=== PATIENT | female | born 1945 | race Two or more races ===

== ENCOUNTER 2021-05-05 08:00 | Outpatient (CLI) | payer OTHER | END 2021-05-05 08:30 | disposition home or self-care (01) | LOC: PPH VACUNA 08:00 | PROVIDERS: ATTEND Emergency Medicine Pediatric Emergency Medicine | DX: Z23 Encounter for immunization (principal) ==

== ENCOUNTER 2021-05-12 12:06 | Outpatient (CLI) | payer OTHER | END 2021-05-12 12:12 | disposition home or self-care (01) | LOC: RAD 12:06 | PROVIDERS: ATTEND Physical Medicine & Rehabilitation | DX: M54.50 Low back pain, unspecified (principal); M54.6 Pain in thoracic spine; M54.2 Cervicalgia ==

== ENCOUNTER 2021-05-26 08:00 | Outpatient (CLI) | payer OTHER | END 2021-05-26 08:30 | disposition home or self-care (01) | LOC: PPH VACUNA 08:00 | PROVIDERS: ATTEND Emergency Medicine Pediatric Emergency Medicine | DX: Z23 Encounter for immunization (principal) ==

== ENCOUNTER 2021-07-20 11:05 | Outpatient (CLI) | payer OTHER | END 2021-07-20 11:06 | disposition home or self-care (01) | LOC: RAD 11:05 | PROVIDERS: ATTEND Physical Medicine & Rehabilitation | DX: R06.03 Acute respiratory distress (principal); M25.561 Pain in right knee; M17.11 Unilateral primary osteoarthritis, right knee ==

== ENCOUNTER 2021-08-04 11:51 | Outpatient (CLI) | payer OTHER | END 2021-08-04 11:55 | disposition home or self-care (01) | LOC: NUCLEAR 11:51 | PROVIDERS: ATTEND Internal Medicine Cardiovascular Disease | DX: J44.9 Chronic obstructive pulmonary disease, unspecified (principal); I10 Essential (primary) hypertension ==

== ENCOUNTER 2021-10-19 07:47 | Outpatient (CLI) | payer OTHER | END 2021-10-19 07:48 | disposition home or self-care (01) | LOC: NUCLEAR 07:47 | PROVIDERS: ATTEND Internal Medicine | DX: I11.0 Hypertensive heart disease with heart failure (principal); I50.20 Unspecified systolic (congestive) heart failure | CPT/HCPCS: 78452; 93017; A9500 ==

== ENCOUNTER 2022-09-24 06:52 | Emergency (ER) | payer OTHER ==
[~2022-09-24] VITALS: Ht 157.5 cm; Wt 71.2 kg
[2022-09-24] MEDS ORDERED: VASOTEC10 MG (06:56)
[2022-09-24] MEDS ORDERED: CARVEDILOL3.125 MG (06:56)
[2022-09-24] MEDS ORDERED: LASIX20 MG (06:56)
[2022-09-24] MEDS ORDERED: PLAVIX75 MG (06:57)
== END 2022-09-24 10:13 | disposition home or self-care (01) ==
LOC: ER 06:52
DX: T78.3XXA Angioneurotic edema, initial encounter (principal); R21 Rash and other nonspecific skin eruption; I10 Essential (primary) hypertension; Z88.0 Allergy status to penicillin; Z88.6 Allergy status to analgesic agent; Z91.013 Allergy to seafood; Z91.048 Other nonmedicinal substance allergy status

== ENCOUNTER → 2022-11-30 | Outpatient (CLI) | payer OTHER ==
[~2022-11-30] MED LIST: CARVEDILOL3.125 MG; LASIX20 MG; PLAVIX75 MG; VASOTEC10 MG
== END | disposition home or self-care (01) ==
LOC: SONOGRAMA 12:43
PROVIDERS: ATTEND Physical Medicine & Rehabilitation
DX: M75.101 Unspecified rotator cuff tear or rupture of right shoulder, not specified as traumatic (principal); M25.511 Pain in right shoulder

== ENCOUNTER 2022-12-04 16:20 | Emergency (ER) | payer OTHER ==
[~2022-12-04] VITALS: Ht 165.1 cm; Wt 69.4 kg
== END 2022-12-04 18:44 | disposition home or self-care (01) ==
LOC: ER 16:20
DX: I50.9 Heart failure, unspecified (principal); I10 Essential (primary) hypertension; Z88.0 Allergy status to penicillin; Z88.6 Allergy status to analgesic agent; Z91.013 Allergy to seafood; Z91.048 Other nonmedicinal substance allergy status

== ENCOUNTER 2022-12-31 15:34 | Inpatient (IN) | payer OTHER ==
[~2022-12-31] VITALS: Ht 167.6 cm; Wt 86.2 kg
--- NOTE | 2022-12-31 16:03 | NUR ---
SE RECIBE PTE ALERTA Y ORIENTADA X3 LA CUAL REFIERE VENIR POR DIFICULTAD RESPIRATORIA DESDE HACE VARIOS HAIR. PTE SE OBSERVA CON EDEMA EN EXTREMIDADES INFERIORES. SE MIDEN S/V A PTE, PTE SATURANDO 92%. SE REALIZA EKG A PTE. PTE SE COLOCA EN AREA DE OBSERVACION. PTE DE DR. POWELL.
[2022-12-31 16:37] LABS: HEMATOCRIT 37.5 % (36.0-45.00); HEMOGLOBIN 12.3 g/dL (12.0-15.00); MEAN CORPUSCULAR HEMOGLOBIN 26.2 pg (27.00-32.0); MEAN CORPUSCULAR HGB CONC 32.7 g/dl (32.0-36.0); PLATELET COUNT 239 K/uL (150-450); RED BLOOD COUNT 4.69 M/uL (4.00-6.00); RED CELL DISTRIBUTION WIDTH 16.9 % (11.5-14.5)
--- NOTE | 2022-12-31 16:49 | NUR ---
PTE EVALUADO POR MD [place] [facility] A PTE. SE EDUCA A PTE SOBRE LE MIMSO Y REFIERE ENTENDER. SE LLEVA ACABO VENOPUNCION BAJO MEDIDAWS ACEPTICAS. PTE PEND A RESULTADOS DE LAB Y REALIZACION DE X RAYS. PTE SE CONECTA A MONITOR CARDIACO Y OXIMETRIA DE PULSO RYAN Y SE COLOCA MANN BAJO MEDIDAS ESTERILES.
[2022-12-31 16:55] LABS: ALBUMIN 3.6 gm/dL (3.4-5.0); BILIRUBIN TOTAL 0.27 mg/dL (0.3-1.2); CALCIUM 8.8 mg/dL (8.5-10.1); CREATININE SERUM 1.4 mg/dL (0.55-1.02); GFR 36.27; GLOBULINA 3.5 G/DL (2.4-3.5); POTASSIUM 4.17 mEq/L (3.5-5.1); TOTAL PROTEIN 7.1 gm/dL (6.4-8.2)
[2022-12-31 17:02] LABS: ABG PO2 82.7 mmHg (80-100); ABG pCO2 34.6 mmHg (35-45); BASE EXCESS -2.4 mmol/l; BICARBONATE 21.5 mmol/l (23-25); SaO2 96.1 %; Tco2 22.5 mmol/l
[2022-12-31 17:17] LABS: PH,URINE 5.5 (5.0-8.0); URINE APPEARANCE Clear; URINE BILIRRUBIN Negative (NEGATIVE); URINE BLOOD Small; URINE COLOR Yellow; URINE GLUCOSE Negative (NEGATIVE); URINE LEUKOCYTE Negative; URINE NITRATE Negative; URINE PROTEIN Negative (NEGATIVE); URINE UROBILINOGEN 0.2 E.U./dl
[2022-12-31 17:20] LABS: URINE BACTERIA 17.6 uL (0.0-1933); URINE RBC 28.1 uL (0.0-20.8); URINE WBC 4.1 uL (0.0-23.2)
[2022-12-31 17:24] LABS: URINE EPITHELIAL CELLS 0.7 uL (0.0-38.8)
[2022-12-31 18:06] LABS: CKMB 2.2 NG/ML (0.5-3.6)
[2022-12-31 18:38] LABS: allen test SATISFACTORY; o2 21 %; puncture site RADIAL RIGHT
[2023-01-01 02:40] LABS: HEMATOCRIT 37.6 % (36.0-45.00); HEMOGLOBIN 11.8 g/dL (12.0-15.00); MEAN CELL VOLUME 81.6 fL (80.00-100.00); MEAN CORPUSCULAR HEMOGLOBIN 25.6 pg (27.00-32.0); MEAN CORPUSCULAR HGB CONC 31.4 g/dl (32.0-36.0); PLATELET COUNT 233 K/uL (150-450); RED BLOOD COUNT 4.61 M/uL (4.00-6.00); RED CELL DISTRIBUTION WIDTH 16.6 % (11.5-14.5)
[2023-01-01 02:52] LABS: INR 1.04; PARTIAL THROMBOPLASTIN TIME 25.3 SECONDS (22.0-34.0); PROTHROMBIN TIME 10.9 SECONDS (9.0-11.5)
[2023-01-01 02:59] LABS: CKMB 1.8 NG/ML (0.5-3.6)
[2023-01-01 03:01] LABS: ERYTHROCYTE SEDIMENTATION RATE 27 mm/hr
[2023-01-01 03:05] LABS: ALBUMIN 3.3 gm/dL (3.4-5.0); BILIRUBIN TOTAL 0.49 mg/dL (0.3-1.2); CALCIUM 8.5 mg/dL (8.5-10.1); CHOL HDL RATIO 2.4 (0-5.0); CREATININE SERUM 1.25 mg/dL (0.55-1.02); GFR 41.34; GLOBULINA 3.4 G/DL (2.4-3.5); POTASSIUM 4.86 mEq/L (3.5-5.1); T4 FREE 1.14 NG/ML (0.76-1.46); TOTAL PROTEIN 6.7 gm/dL (6.4-8.2); TSH 2.48 uIU/mL (0.358-3.74)
[2023-01-01 03:06] LABS: C-REACTIVE PROTEIN 1.26 MG/DL (0.00-0.29)
[2023-01-01 08:34] LABS: URINE APPEARANCE Turbid; URINE BILIRRUBIN Small (NEGATIVE); URINE BLOOD Small; URINE COLOR Red; URINE GLUCOSE Negative (NEGATIVE); URINE LEUKOCYTE Moderate; URINE NITRATE Positive
[2023-01-01 08:36] LABS: URINE BACTERIA 380.9 uL (0.0-1933); URINE EPITHELIAL CELLS 140.3 uL (0.0-38.8); URINE WBC 232.2 uL (0.0-23.2)
[2023-01-01 09:13] LABS: URINE PROTEIN 100 (NEGATIVE); URINE RBC > 10558.9 uL (0.0-20.8)
[2023-01-01 11:05] LABS: CKMB 1.5 NG/ML (0.5-3.6)
[2023-01-02] MEDS ORDERED: CLOPIDOGREL BIS75 MG PO (09:33)
[2023-01-02] MEDS ORDERED: FUROSEMIDE20 MG PO (09:34)
[2023-01-02] MEDS ORDERED: CARVEDILOL3.125 MG PO (09:34)
[2023-01-02] MEDS ORDERED: SIMVASTATIN20 MG PO (09:34)
[2023-01-02] MEDS ORDERED: MORGIDOX100 MG PO (09:36)
== END 2023-01-02 12:18 | disposition home or self-care (01) | DRG 291 ==
LOC: ER 15:35 → MEDI 18:02
PROVIDERS: General Practice; ADMIT Internal Medicine; ATTEND Internal Medicine
PROC: 4A12X4Z Monitoring of Cardiac Electrical Activity, External Approach (ICD-10-PCS; principal; 2022-12-31)
PROC: 0H9QXZZ Drainage of Finger Nail, External Approach (ICD-10-PCS; 2023-01-01)
DX: I11.0 Hypertensive heart disease with heart failure (principal); I50.21 Acute systolic (congestive) heart failure; L03.012 Cellulitis of left finger; I44.7 Left bundle-branch block, unspecified; R60.0 Localized edema; E78.49 Other hyperlipidemia; E11.9 Type 2 diabetes mellitus without complications; Z79.4 Long term (current) use of insulin

== ENCOUNTER 2023-03-04 13:09 | Inpatient (IN) | payer OTHER ==
[~2023-03-04] VITALS: Ht 154.9 cm; Wt 71.2 kg
[~2023-03-04 13:09] MED LIST changes: +CARVEDILOL3.125 MG PO; +CLOPIDOGREL BIS75 MG PO; +FUROSEMIDE20 MG PO; +MORGIDOX100 MG PO; +SIMVASTATIN20 MG PO
[2023-03-04 16:05] LABS: HEMATOCRIT 40.2 % (36.0-45.00); HEMOGLOBIN 13.1 g/dL (12.0-15.00); MEAN CELL VOLUME 79.9 fL (80.00-100.00); MEAN CORPUSCULAR HGB CONC 32.6 g/dl (32.0-36.0); PLATELET COUNT 233 K/uL (150-450); RED BLOOD COUNT 5.03 M/uL (4.00-6.00); RED CELL DISTRIBUTION WIDTH 16.8 % (11.5-14.5)
[2023-03-04 16:35] LABS: ALBUMIN 3.7 gm/dL (3.4-5.0); BILIRUBIN TOTAL 0.8 mg/dL (0.3-1.2); CALCIUM 9.2 mg/dL (8.5-10.1); CREATININE SERUM 1.14 mg/dL (0.55-1.02); GFR 45.98; GLOBULINA 3.9 G/DL (2.4-3.5); POTASSIUM 4.22 mEq/L (3.5-5.1); TOTAL PROTEIN 7.6 gm/dL (6.4-8.2)
[2023-03-04 16:38] LABS: ABG PH 7.416 (7.35-7.45); ABG PO2 79.1 mmHg (80-100); ABG pCO2 32.2 mmHg (35-45); BASE EXCESS -3.2 mmol/l; BICARBONATE 20.2 mmol/l (23-25); SaO2 95.7 %; Tco2 21.2 mmol/l; allen test SATISFACTORY; o2 21 %; puncture site RADIAL LEFT
[2023-03-04 23:28] LABS: CKMB 2.9 NG/ML (0.5-3.6)
[2023-03-05 07:18] LABS: ABG PO2 77.3 mmHg (80-100); BASE EXCESS 0.9 mmol/l
[2023-03-05 07:19] LABS: BICARBONATE 25.3 mmol/l (23-25); Tco2 26.6 mmol/l; allen test SATISFACTORY; o2 21 %; puncture site RADIAL RIGHT
[2023-03-05 07:20] LABS: SaO2 95.6 %
[2023-03-05 08:20] LABS: ALBUMIN 3.5 gm/dL (3.4-5.0); BILIRUBIN TOTAL 0.99 mg/dL (0.3-1.2); BILIRUBIN,CONJUGATED 0.29 mg/dL (0.0-0.2); BILIRUBIN,UNCONJUGATED 0.7 mg/dL (0.0-0.6); CALCIUM 8.9 mg/dL (8.5-10.1); CHOL HDL RATIO 2.5 (0-5.0); CREATININE SERUM 1.08 mg/dL (0.55-1.02); GFR 48.94; GLOBULINA 3.2 G/DL (2.4-3.5); POTASSIUM 4.13 mEq/L (3.5-5.1); TOTAL PROTEIN 6.7 gm/dL (6.4-8.2)
[2023-03-05 08:45] LABS: URINE APPEARANCE Clear; URINE BILIRRUBIN Negative (NEGATIVE); URINE BLOOD Negative; URINE COLOR Yellow; URINE GLUCOSE Negative (NEGATIVE); URINE LEUKOCYTE Negative; URINE NITRATE Negative; URINE PROTEIN Negative (NEGATIVE); URINE UROBILINOGEN 0.2 E.U./dl
[2023-03-05 08:47] LABS: URINE BACTERIA 8.7 uL (0.0-1933); URINE WBC 6.3 uL (0.0-23.2)
[2023-03-05 09:14] LABS: HEMATOCRIT 37.4 % (36.0-45.00); HEMOGLOBIN 12.4 g/dL (12.0-15.00); MEAN CELL VOLUME 79.7 fL (80.00-100.00); MEAN CORPUSCULAR HEMOGLOBIN 26.5 pg (27.00-32.0); MEAN CORPUSCULAR HGB CONC 33.2 g/dl (32.0-36.0); PLATELET COUNT 204 K/uL (150-450)
[2023-03-05 09:20] LABS: URINE RBC 0.7 uL (0.0-20.8)
[2023-03-05 09:51] LABS: ERYTHROCYTE SEDIMENTATION RATE 30 mm/hr
[2023-03-05 15:45] LABS: CKMB 3.3 NG/ML (0.5-3.6)
[2023-03-05 21:59] LABS: INR 1.09; PARTIAL THROMBOPLASTIN TIME 26.5 SECONDS (22.0-34.0); PROTHROMBIN TIME 11.4 SECONDS (9.0-11.5)
[2023-03-06 07:50] LABS: ALBUMIN 3.6 gm/dL (3.4-5.0); BILIRUBIN TOTAL 1.01 mg/dL (0.3-1.2); CREATININE SERUM 1.53 mg/dL (0.55-1.02); GFR 32.74; POTASSIUM 4.67 mEq/L (3.5-5.1); TOTAL PROTEIN 6.6 gm/dL (6.4-8.2)
[2023-03-07 06:56] LABS: HEMOGLOBIN 13.4 g/dL (12.0-15.00); MEAN CELL VOLUME 79.9 fL (80.00-100.00); MEAN CORPUSCULAR HEMOGLOBIN 26.8 pg (27.00-32.0); MEAN CORPUSCULAR HGB CONC 33.6 g/dl (32.0-36.0); PLATELET COUNT 210 K/uL (150-450); RED BLOOD COUNT 5.01 M/uL (4.00-6.00); RED CELL DISTRIBUTION WIDTH 15.9 % (11.5-14.5)
[2023-03-07 07:20] LABS: ALBUMIN 3.6 gm/dL (3.4-5.0); BILIRUBIN TOTAL 0.94 mg/dL (0.3-1.2); CALCIUM 8.9 mg/dL (8.5-10.1); CREATININE SERUM 1.53 mg/dL (0.55-1.02); GFR 32.74; GLOBULINA 3.3 G/DL (2.4-3.5); POTASSIUM 3.23 mEq/L (3.5-5.1); TOTAL PROTEIN 6.9 gm/dL (6.4-8.2)
[2023-03-07] MEDS ORDERED: METFORMIN HCL500 M4 (13:34)
[2023-03-08 10:21] LABS: ALBUMIN 4.3 gm/dL (3.4-5.0); BILIRUBIN TOTAL 1.03 mg/dL (0.3-1.2); CALCIUM 9.6 mg/dL (8.5-10.1); CREATININE SERUM 1.76 mg/dL (0.55-1.02); GFR 27.85; GLOBULINA 4.1 G/DL (2.4-3.5); POTASSIUM 3.49 mEq/L (3.5-5.1); TOTAL PROTEIN 8.4 gm/dL (6.4-8.2)
== END 2023-03-08 14:47 | disposition home or self-care (01) | DRG 291 ==
LOC: ER 13:09 → MEDI 22:23
PROVIDERS: Emergency Medicine; General Practice; Internal Medicine; ADMIT Specialist; ATTEND Specialist
PROC: B246ZZZ Ultrasonography of Right and Left Heart (ICD-10-PCS; principal; 2023-03-05)
PROC: 3E0F7GC Introduction of Other Therapeutic Substance into Respiratory Tract, Via Natural or Artificial Opening (ICD-10-PCS; 2023-03-05)
PROC: 4A12X4Z Monitoring of Cardiac Electrical Activity, External Approach (ICD-10-PCS; 2023-03-05)
DX: I11.0 Hypertensive heart disease with heart failure (principal); I50.21 Acute systolic (congestive) heart failure; I50.23 Acute on chronic systolic (congestive) heart failure; N17.8 Other acute kidney failure; R06.03 Acute respiratory distress; I50.1 Left ventricular failure, unspecified; E11.9 Type 2 diabetes mellitus without complications; Z79.4 Long term (current) use of insulin

== ENCOUNTER → 2024-02-21 | Outpatient (CLI) | payer OTHER ==
[~2024-02-21] MED LIST changes: +METFORMIN HCL500 M4
== END | disposition home or self-care (01) ==
LOC: MRI 10:03
PROVIDERS: ATTEND Psychiatry & Neurology Clinical Neurophysiology
DX: G31.84 Mild cognitive impairment of uncertain or unknown etiology (principal)
CPT/HCPCS: 70551